=== PATIENT | female | born 1955 | race Caucasian/White ===

== ENCOUNTER 2022-06-29 12:58 | Emergency (ER) | payer BC ==
[2022-06-29] MEDS ORDERED: KETOROLAC TROMETHAMINE 15 MG VIAL IVP ONE (17:00)
[2022-06-29] MEDS ORDERED: NACL 0.9% 1,000 ML IV ONE (17:00)
[2022-06-29 17:58] LABS: BASOPHILS % (AUTO) 0.5 % (0.0-2.0); HEMATOCRIT 36.8 % (36-48); HEMOGLOBIN 12.4 g/dL (12.0-16.0); LYMPHOCYTES % (AUTO) 20.7 % (20.5-51.5); MEAN CORPUSCULAR HEMOGLOBIN 27 pg (27-31); MEAN CORPUSCULAR HGB CONC 34 % (32-36); MEAN CORPUSCULAR VOLUME 79 fL (79.0-98.0); MONOCYTES # (AUTO) 0.6 K/uL (0.0-1.0); MONOCYTES % (AUTO) 11.8 % (1.7-9.3); NEUTROPHILS # (AUTO) 3.3 K/uL (1.8-7.7); PLATELET COUNT (AUTO) 189 K/uL (130-430); RED BLOOD CELL COUNT(AUTO) 4.64 MIL/uL (4.2-6.2); RED CELL DISTRIBUTION WIDTH 13.4 % (9.0-15.0)
[2022-06-29 18:28] LABS: ANION GAP 8 (5-15); CALCIUM 8.9 mg/dL (8.4-11.0); CHLORIDE 99 mmol/L (98-107); CREATININE 0.72 mg/dL (0.55-1.30); GLUCOSE 140 mg/dL (70-99); UREA NITROGEN, BLOOD 16 mg/dL (8-21)
[2022-06-29 18:35] LABS: ALANINE AMINOTRANSFERASE 20 U/L (12-78); ALBUMIN 2.7 g/dL (3.4-4.8); ASPARTATE AMINOTRANSFERASE 17 U/L (10-37); TOTAL BILIRUBIN 0.6 mg/dL (0.0-1.0)
[2022-06-29 18:40] LABS: GFR AFRICAN AMERICAN 104 mL/min (>90)
[2022-06-29] MEDS ORDERED: GUAI120L56 PO (20:22)
[2022-06-29 22:06] VITALS: BP_SYST 138
== END 2022-06-29 20:31 | disposition home or self-care (01) ==
LOC: SED 12:58
DX: J18.9 Pneumonia, unspecified organism (principal); R50.9 Fever, unspecified; R05.9 Cough, unspecified; R51.9 Headache, unspecified; E11.9 Type 2 diabetes mellitus without complications; I10 Essential (primary) hypertension; Z79.899 Other long term (current) drug therapy; Z20.822 Contact with and (suspected) exposure to COVID-19
CPT/HCPCS: 99285; 96374; 71260; 71045; 96361; 87426; 80053; 82962; 85025; 84484; 36415; 93005; 76376; 87804 ×2; J1885; Q9967; J7030